=== PATIENT | male | born 1935 | race Caucasian/White ===

== ENCOUNTER 2019-07-11 12:38 | Observation (INO) | payer MEDICARE, OTHER ==
[~2019-07-11] VITALS: Ht 188 cm; Wt 101.6 kg
[~2019-07-11 12:38] MED LIST: INDERAL LA120 M1; Z.0.CRESTOR10 MG PO; Z.0.LEVOTHYROXINE100
--- OUTSIDE RECORDS SUMMARY | 2019-07-11 12:41 | XMS REPORT | Clinical Summary ---
Author Author [facility] Organization [facility] Address Unknown Phone Unavailable Care Team Providers Care Instrument Panel Assembler Name Role Phone Lesley Blanc PCP Allergies No Known Allergies Medications End Date Status Medication Sig Dispensed Refills Start Date Active liothyronine (CYTOMEL) 5 Take 5 mcg by 0 MCG tablet mouth 2 (two) times daily . Active alfuzosin (UROXATRAL) 10 Take 10 mg by 0 mg 24 hr tablet mouth daily. Active finasteride (PROSCAR) 5 Take 5 mg by 0 mg tablet mouth daily. Active rosuvastatin (CRESTOR) 10 Take 10 mg by 0 MG tablet mouth daily. Active fluticasone (FLONASE) 50 1 spray by 0 mcg/actuation nasal spray Nasal route daily. Active multivitamin per tablet Take 1 tablet 0 by mouth daily. Active aspirin 81 MG EC tablet Take 81 mg by 0 mouth daily. Active losartan (COZAAR) 50 MG Take 50 mg by 0 tablet mouth daily. Active FUROSEMIDE ORAL Take 20 mg by 0 mouth daily Strength of medication unknown per patient. . Active levothyroxine (SYNTHROID, Take 175 mcg 0 LEVOTHROID) 175 MCG by mouth tablet Every morning on an empty stomach. Active ferrous sulfate (IRON) Take 325 mg 0 325 (65 FE) MG tablet by mouth daily with breakfast. Active glucosamine sulfate Take by mouth 0 (GLUCOSAMINE ORAL) daily. Active calcium carbonate/vitamin Take by mouth 0 D3 (CALCIUM+D ORAL) daily. Active metoprolol (TOPROL-XL) 25 Take 25 mg by 0 MG 24 hr tablet mouth daily. Active omega-3 fatty acids-fish Take 2 g by 0 oil 340-1,000 mg Cap per mouth 2 (two) capsule times daily. Active pantoprazole (PROTONIX) Take one 0 40 MG tablet tablet on 9 empty stomach before breakfast in the morning. Active famotidine (PEPCID) 40 MG Take 1 tablet 30 tablet 3 tablet (40 mg total) 9 by mouth nightly No more refills through my office. 12/17/2018 Discontinued PANTOPRAZOLE SODIUM Take 40 mg by 0 (PANTOPRAZOLE ORAL) mouth daily . 12/16/2018 Discontinued propranolol (INDERAL) 20 Take 1 tablet 120 tablet 3 MG tablet (20 mg total) 8 by mouth every 6 (six) hours. Active Problems Problem Noted Date Gastroesophageal reflux disease without esophagitis 12/17/2018 Bilateral carotid artery disease 06/21/2018 HTN (hypertension) 06/21/2018 HLD (hyperlipidemia) 06/21/2018 Premature atrial complexes 05/31/2018 Bradycardia 12/30/2017 Bigeminy 12/30/2017 Acute midline thoracic back pain 12/28/2017 Chest pain 03/02/2017 CHF (congestive heart failure) 04/16/2016 Coronary artery disease 04/16/2016 Encounters Care Team Description Date Type Specialty Anthony Bates Jr., MD Giveon, Ron, MD Other chest pain (Primary Dx); Essential hypertension; Hyperlipidemia, unspecified hyperlipidemia type 12/16/2018 Emergency Cardiology - 12/17/2018 12/16/2018 Orders Only General Internal Medicine 12/16/2018 Travel after 07/10/2018 Social History Date Tobacco Use Types Packs/Day Years Used Former Smoker Smokeless Tobacco: Never Used Alcohol Use Drinks/Week oz/Week Comments Yes 7 Glasses of 4.2 1 glass of wine daily wine Sex Assigned at Date Recorded Not on file Industry Job Start Date Occupation Not on file Not on file Not on file Travel End Travel History Travel Start No recent travel history available. Last Filed Vital Signs Time Taken Vital Sign Reading 12/17/2018 4:08 PM [employer] Blood Pressure 138/66 12/17/2018 4:08 PM [employer] Pulse 66 12/17/2018 4:08 PM [employer] Temperature 36.3 C (97.4 F) 12/17/2018 4:08 PM [employer] Respiratory Rate 18 12/17/2018 4:08 PM [employer] Oxygen Saturation 98% - Inhaled Oxygen - Concentration 12/17/2018 7:00 AM [employer] Weight 101.2 kg (223 lb) 12/16/2018 5:00 PM [employer] Height 188 cm (6' 2") 12/17/2018 7:00 AM [employer] Body Mass Index 28.63 Plan of Treatment Not on file Implants Device Identifier Shelf Expiration Date Model / Serial / Lot Implanted Type Area Manufactur er 05/08/2020 [id number] / / [id number] Cardiovasc N/A: Groin CARDINAL Implanted: Qty: 1 on 06/23/2018 by [facility] Dell Macario MD KELLY Procedures Comments Procedure Name Priority Date/Time Associated Diagnosis RHYTHM STRIP - SCAN 12/30/2018 6:30 AM [employer] REPORT OF PROCEDURE - 12/30/2018 ENDOSCOPY SCAN 6:30 AM [employer] TREADMILL Routine 12/17/2018 TOLERANCE(NON-NUCLEAR 2:52 PM [employer] TREADMILL) NM CARDIAC PET PERFUSION ALONSO 12/17/2018 REST AND/OR STRESS 2:49 PM [employer] TROPONIN I Routine 12/16/2018 6:10 PM [employer] XR CHEST 1 VIEW STAT 12/16/2018 PORTABLE/BEDSIDE 11:38 AM [employer] CBC W/PLT COUNT & AUTO STAT 12/16/2018 DIFFERENTIAL 11:14 AM [employer] CBC W/PLT COUNT & AUTO STAT 12/16/2018 DIFFERENTIAL 11:14 AM [employer] TROPONIN I STAT 12/16/2018 11:14 AM [employer] B-TYPE NATRIURETIC FACTOR STAT 12/16/2018 (BNP) 11:14 AM [employer] MAGNESIUM STAT 12/16/2018 11:14 AM [employer] BASIC METABOLIC PANEL (7) STAT 12/16/2018 11:14 AM [employer] ECG 12-LEAD Routine 12/16/2018 10:55 AM [employer] Procedure Note - Interface, External Ris In - 12/16/2018 7:15 PM [employer] Ventricula r Rate 68 BPM Atrial Rate 68 BPM P-R Interval 270 ms QRS Duration 146 ms Q-T Interval 434 ms QTC Calculatio n(Bazett) 461 ms P [place] 59 degrees R [place] -6 degrees T [place] 41 degrees Poor data quality, interpreta tion may be adversely affected Wide QRS rhythm Right bundle branch block Abnormal ECG When compared with ECG of 8 00:57, Wide QRS rhythm has replaced Sinus rhythm ECG 12-LEAD STAT 12/16/2018 10:55 AM [employer] VASCULAR DIAGRAM -SCAN 09/06/2018 11:13 AM CDT after 07/10/2018 Results * RHYTHM STRIP - SCAN (12/30/2018 6:30 AM [employer]) Narrative Performed At * EKG-SCANNED (12/30/2018 6:30 AM [employer]) Narrative Performed At * Treadmill tolerance(Non-Nuclear Treadmill) (12/17/2018 2:52 PM [employer]) Specimen Narrative Performed At Protocol Name Regadenoson GE MUSE Time In Exercise Phase 00:01:00 Max. Systolic BP 131 mmHg Max Diastolic BP 34 mmHg Max Heart Rate 106 BPM Max Predicted Heart Rate 135 BPM Reason For Termination Predetermined end point Reason for Test Chest Pain Known Coronary Artery Disease Target HR Formula (220 - Age)*100% Arrhythmias ventricular premature beats Resting ECG Normal sinus rhythm right bundle branch block 1st Degree AV Block ST Changes No Significant Changes Overall Impression Indeterminate due to baseline ECG abnormality Chest Pain none HR Response To Exercise BP Response To Exercise lasix,losartan,metoprolol,crestor Confirmed by fellow Gautam Adame ([id number]) on 12/17/2018 3:25:47 PM Confirmed by Gautam Fitch ([id number]) on 12/20/2018 6:59:46 PM Procedure Note Interface, External Ris In - 12/20/2018 7:00 PM [employer] Protocol Name Regadenoson Time In Exercise Phase 00:01:00 Max. Systolic BP 131 mmHg Max Diastolic BP 34 mmHg Max Heart Rate 106 BPM Max Predicted Heart Rate 135 BPM Reason For Termination Predetermined end point Reason for Test Chest Pain Known Coronary Artery Disease Target HR Formula (220 - Age)*100% Arrhythmias ventricular premature beats Resting ECG Normal sinus rhythm right bundle branch block 1st Degree AV Block ST Changes No Significant Changes Overall Impression Indeterminate due to baseline ECG abnormality Chest Pain none HR Response To Exercise BP Response To Exercise lasix,losartan,metoprolol,crestor Confirmed by fellow Gautam Adame ([id number]) on 12/17/2018 3:25:47 PM Confirmed by Gautam Fitch ([id number]) on 12/20/2018 6:59:46 PM Performing Organization Address City/State/Zipcode Phone Number [employer] MUSE * NM myocardial perfusion PET (rest and stress) (12/17/2018 2:49 PM [employer]) Specimen Narrative Performed At FINAL REPORT [employer] PROCEDURE: Rest/Stress MYOCARDIAL PERFUSION PET with regadenoson\\XA9\\ CPT CODE: 02824 INDICATION: Evaluate acute chest pain/discomfort, coronary artery disease HISTORY: Cardiac risk factors: Hypertension, dyslipidemia. Other cardiovascular history: Reported CAD, congestive heart failure. Recent cardiac symptoms: Chest pain. PROTOCOL: Limited low-dose CT imaging was performed for attenuation correction. 40.0 mCi of Rb-82 chloride was injected iv at rest, and gated PET (positron emission tomography) images were obtained. Subsequently, 40.0 mCi of Rb-82 chloride was injected iv at expected peak pharmacologic effect, and gated PET images were obtained. PRELIMINARY STRESS TEST DATA FROM NONINVASIVE CARDIOLOGY: Pharmacologic stress was by 10-second iv infusion of 0.4 mg of regadenoson. Radiotracer was injected 30 seconds after start of stress. Heart rate was 61 beats/min at rest and 106 beats/min (78% of MPHR) at tracer injection. BP was 146/55 mmHg at rest and 131/34 mmHg at tracer injection. Stress was stopped for predetermined endpoint. The patient experienced no symptoms; treatment was not required. Preliminary ECG evaluation revealed sinus rhythm with first degree AV block and right bundle branch block at rest and no ischemic changes with stress. (Final ECG interpretation and other stress and monitoring data are reported separately by Cardiology.) IMAGING FINDINGS: Study quality is good. Images obtained after rest and stress injections show normal LV activity. LV and RV volumes appear normal. Gated images obtained at rest and with stress show normal LV wall motion and thickening. LVEF at rest is >65%. LVEF at stress is >65%. IMPRESSION: 1. Normal study.2. Appropriate pharmacologic stress.3. Normal myocardial perfusion.4. Normal resting LV function. No deterioration of function is noted with pharmacologic stress.5. Normal extracardiac tracer distribution.6. No previous [facility] study for comparison. Signed: Freya Brown MD Report Verified Date/Time:12/17/2018 15:55:23 Reading Location: [address] Reading Room Procedure Note Interface, External Ris In - 12/17/2018 3:57 PM [employer] FINAL REPORT PROCEDURE: Rest/Stress MYOCARDIAL PERFUSION PET with regadenoson\\XA9\\ CPT CODE: 56951 INDICATION: Evaluate acute chest pain/discomfort, coronary artery disease HISTORY: Cardiac risk factors: Hypertension, dyslipidemia. Other cardiovascular history: Reported CAD, congestive heart failure. Recent cardiac symptoms: Chest pain. PROTOCOL: Limited low-dose CT imaging was performed for attenuation correction. 40.0 mCi of Rb-82 chloride was injected iv at rest, and gated PET (positron emission tomography) images were obtained. Subsequently, 40.0 mCi of Rb-82 chloride was injected iv at expected peak pharmacologic effect, and gated PET images were obtained. PRELIMINARY STRESS TEST DATA FROM NONINVASIVE CARDIOLOGY: Pharmacologic stress was by 10-second iv infusion of 0.4 mg of regadenoson. Radiotracer was injected 30 seconds after start of stress. Heart rate was 61 beats/min at rest and 106 beats/min (78% of MPHR) at tracer injection. BP was 146/55 mmHg at rest and 131/34 mmHg at tracer injection. Stress was stopped for predetermined endpoint. The patient experienced no symptoms; treatment was not required. Preliminary ECG evaluation revealed sinus rhythm with first degree AV block and right bundle branch block at rest and no ischemic changes with stress. (Final ECG interpretation and other stress and monitoring data are reported separately by Cardiology.) IMAGING FINDINGS: Study quality is good. Images obtained after rest and stress injections show normal LV activity. LV and RV volumes appear normal. Gated images obtained at rest and with stress show normal LV wall motion and thickening. LVEF at rest is >65%. LVEF at stress is >65%. IMPRESSION: 1. Normal study. 2. Appropriate pharmacologic stress. 3. Normal myocardial perfusion. 4. Normal resting LV function. No deterioration of function is noted with pharmacologic stress. 5. Normal extracardiac tracer distribution. 6. No previous [facility] study for comparison. Signed: Freya Brown MD Report Verified Date/Time: 12/17/2018 15:55:23 Reading Location: [address] Reading Room Performing Organization Address City/State/Zipcode Phone Number GE RIS * Troponin I (12/16/2018 6:10 PM [employer]) Only the most recent of 2 results within the time period is included. Troponin I <0.01 0.00 - 0.03 ng/mL [facility] Specimen Blood Narrative Performed At Troponin I (TnI) levels must be interpreted in the context of the presenting [facility] symptoms and the clinical findings. Elevated TnI levels indicate myocardial [facility] damage, but are not specific for ischemic heart disease. Elevated TnI levels are seen in patients with other cardiac conditions (including myocarditis and congestive heart failure), and slight TnI elevations occur in patients with other conditions, including sepsis, renal failure, acidosis, acute neurological disease, and persistent tachyarrhythmia. Performing Organization Address City/[facility] Cent[facility] Phone Number [facility] [address] [place] [address] MEDICAL CENTER * XR chest 1 view portable/bedside (12/16/2018 11:38 AM [employer]) Specimen Narrative Performed At FINAL REPORT GE Hyper9 Clinical History: chest pain Comparison Study: May 31, 2018 Findings:The heart and lungs are within normal limits.The pleural spaces are clear.No significant bony or soft tissue abnormalities are seen. Impression: No active cardiopulmonary disease. Signed: Tomas Painting MD Report Verified Date/Time:12/16/2018 12:27:00 Reading Location: [facility] Radiology Reading Room Procedure Note Interface, External Ris In - 12/16/2018 12:29 PM [employer] FINAL REPORT Clinical History: chest pain Comparison Study: May 31, 2018 Findings: The heart and lungs are within normal limits. The pleural spaces are clear. No significant bony or soft tissue abnormalities are seen. Impression: No active cardiopulmonary disease. Signed: Tomas Painting MD Report Verified Date/Time: 12/16/2018 12:27:00 Reading Location: [facility] Radiology Reading Room Performing Organization Address City/[facility] Phone Number GE Hyper9 * CBC with platelet count + automated diff (12/16/2018 11:14 AM [employer]) WBC 4.9 3.5 - 10.5 K/L [facility] RBC 3.34 (L) 4.63 - 6.08 M/L [facility] Hemoglobin 10.5 (L) 13.7 - 17.5 GM/DL [facility] Hematocrit 31.9 (L) 40.1 - 51.0 % [facility] MCV 95.5 (H) 79.0 - 92.2 fL [facility] MCH 31.4 25.7 - 32.2 pg [facility] MCHC 32.9 32.3 - 36.5 GM/DL [facility] RDW 12.5 11.6 - 14.4 % [facility] Platelets 241 150 - 450 K/CU MM [facility] MPV 10.5 9.4 - 12.4 fL [facility] nRBC 0 0 - 0 /100 WBC [facility] % Neutros 60 % [facility] % Lymphs 19 % [facility] % Monos 17 % [facility] % Eos 3 % [facility] % Baso 1 % [facility] # Neutros 2.94 1.78 - 5.38 K/L [facility] # Lymphs 0.92 (L) 1.32 - 3.57 K/L [facility] # Monos 0.82 0.30 - 0.82 K/L [facility] # Eos 0.14 0.04 - 0.54 K/L [facility] # Baso 0.04 0.01 - 0.08 K/L [facility] Immature 0 0 - 1 % [facility] Granulocytes-Relative [facility] Specimen Blood Performing Organization Address City/[facility]/Zipcode Phone Number [address] [address] [phone] * B-type Natriuretic Factor (BNP) (12/16/2018 11:14 AM [employer]) BNP 300 (H) 0 - 100 pg/mL [facility] Specimen Blood Performing Organization Address City/[facility]/Zipcode Phone Number [address] [address] [phone] [place] [address] * Magnesium (12/16/2018 11:14 AM [employer]) Magnesium 1.9 1.6 - 2.6 mg/dL [facility] Specimen Blood Performing Organization Address [facility] Cent[facility] Phone Number [place] [phone] * Basic Metabolic Panel (12/16/2018 11:14 AM [employer]) Sodium 137 136 - 145 meq/L [facility] Potassium 4.2 3.5 - 5.1 meq/L [facility] Chloride 103 98 - 107 meq/L [facility] CO2 25 22 - 29 meq/L [facility] BUN 13 7 - 21 mg/dL [facility] Creatinine 0.86 0.57 - 1.25 mg/dL [facility] Glucose 109 (H) 70 - 105 mg/dL [facility] Calcium 9.2 8.4 - 10.2 mg/dL [facility] EGFR 85Comment: ESTIMATED GFR IS mL/min/1.[address] [facility] NOT ACCURATE CREATININE [facility] CLEARANCE IN PREDICTING GLOMERULAR FILTRATION RATE. ESTIMATED GFR IS NOT APPLICABLE FOR DIALYSIS PATIENTS. Specimen Blood Performing Organization Address City/[facility]/Zipcode Phone Number [facility] [address] [place] [address] MEDICAL CENTER * ECG 12 lead (12/16/2018 10:55 AM [employer]) Specimen Narrative Performed At Ventricular Rate 68 BPM GE MUSE Atrial Rate 68 BPM P-R Interval 270 ms QRS Duration 146 ms Q-T Interval 434 ms QTC Calculation(Bazett) 461 ms P [place] 59 degrees R [place] -6 degrees T [place] 41 degrees Sinus rhythm with first degree AV block Right bundle branch block Abnormal ECG When compared with ECG of 31-MAY-2018 00:57, ventricular bigeminy is no longer present. Confirmed by Donald BRADSHAW MICHAEL ([id number]) on 12/17/2018 7:26:07 AM Procedure Note Interface, External Ris In - 12/17/2018 9:04 AM [employer] Ventricular Rate 68 BPM Atrial Rate 68 BPM P-R Interval 270 ms QRS Duration 146 ms Q-T Interval 434 ms QTC Calculation(Bazett) 461 ms P [place] 59 degrees R [place] -6 degrees T [place] 41 degrees Sinus rhythm with first degree AV block Right bundle branch block Abnormal ECG When compared with ECG of 31-MAY-2018 00:57, ventricular bigeminy is no longer present. Confirmed by Donald BRADSHAW MICHAEL ([id number]) on 12/17/2018 7:26:07 AM Performing Organization Address City/State/Zipcode Phone Number GE [employer]ET * VASCULAR DIAGRAM -SCAN (09/06/2018 11:13 AM CDT) Narrative Performed At after 07/10/2018 Insurance Payer Benefit Subscriber ID Type Phone Address Plan / Group MEDICARE MEDICARE A xxxxxxxxxxx Medicare B AETNA - MGD CARE AETNA xxxxxxxxxx Comm INDEMNITY NON CONTR Advance Directives For more information, please contact: [address] [phone] Date Inactivated Comments Code Status Date Activated 06/23/2018 9:50 PM Full Code 06/23/2018 6:39 AM This code status was determined by: Patient 12/31/2017 5:20 PM Full Code 12/28/2017 1:40 PM This code status was determined by: Patient 03/03/2017 8:34 PM Full Code 03/02/2017 8:46 AM This code status was determined by: Patient 04/17/2016 1:01 AM Full Code 04/16/2016 7:04 AM This code status was determined by: Patient
--- OUTSIDE RECORDS SUMMARY | 2019-07-11 12:41 | XMS REPORT | Clinical Summary ---
Author Author [facility] Organization [facility] Address Unknown Phone Unavailable Care Team Providers Care Clinical Rehabilitation Coordinator Name Role Phone Lesley Blanc MD PCP Allergies No Known Allergies Medications End Date Status Medication Sig Dispensed Refills Start Date Active finasteride (PROSCAR) 5 0 02/09/201 mg tablet 8 Active alfuzosin (UROXATRAL) 10 Take 10 mg by 0 mg 24 hr tablet mouth. Active furosemide (LASIX) 20 mg 0 tablet 8 Active levothyroxine (SYNTHROID, Take 175 mcg 0 LEVOXYL) 175 mcg tablet by mouth. Active losartan (COZAAR) 50 MG Take 50 mg by 0 tablet mouth. Active liothyronine (CYTOMEL) 5 0 02/09/ MCG tablet 8 Active multivitamin (THERAGRAN) Take 1 tablet 0 tablet by mouth. Active pantoprazole (PROTONIX) 0 40 MG EC tablet 8 Active propranolol LA (INDERAL TK ONE C PO 3 LA) 60 MG 24 hr capsule QAM 8 Active rosuvastatin (CRESTOR) 10 Take 10 mg by 0 MG tablet mouth. Active iron,carb/vit C/vit Take by 0 B12/folic (IRON 100 PLUS mouth. ORAL) Active aspirin (ECOTRIN) 81 MG Take 81 mg by 0 enteric coated tablet mouth. Active Ca/D3/mag Take 600 mg 0 ox/zinc/paste up copy camera operator/tamika/bor by mouth (CALCIUM 600-D3 PLUS daily. ORAL) Active fluticasone (FLONASE) 50 2 sprays by 0 mcg/actuation nasal spray Each Nare route daily. Active ytudbwoy-elsqhcsjgfn-izcl Take by 0 cb25 116-100 mg capsule mouth. 09/28/2018 Discontinued quiNIDine gluconate 324 Take 3,000 mg 0 mg CR tablet by mouth daily. 09/28/2018 Discontinued sodium,potassium,mag Please use as 354 mL 0 06/21/201 sulfates (SUPREP BOWEL directed 8 PREP KIT) 17.5-3.13-1.6 gram recon soln 09/28/2018 Discontinued cholestyramine (QUESTRAN) TK 1 PACKET 2 4 gram packet PO 20 MINUTES 8 BEFORE LUNCH AND DINNER Active Problems Problem Noted Date Rotator cuff insufficiency of right shoulder 09/28/2018 Collagenous colitis 05/27/2018 Tubular adenoma of colon 05/27/2018 Diverticulosis large intestine w/o perforation or abscess w/o bleeding 05/27/2018 Internal hemorrhoids 05/27/2018 Heme positive stool 04/29/2018 Absolute anemia 04/29/2018 Gastroesophageal reflux disease 04/10/2018 Diarrhea 04/08/2018 Bloating 04/08/2018 Dyspepsia 04/08/2018 Encounters Care Team Description Date Type Specialty Zen Kaur MD Chronic right shoulder pain (Primary Dx); Rotator cuff insufficiency of right shoulder 09/28/2018 Office Visit Orthopedic Surgery after 07/10/2018 Family History Medical History Relation Name Comments Cancer Brother James Relation Name Status Comments Brother James Social History Date Tobacco Use Types Packs/Day Years Used Never Smoker Smokeless Tobacco: Never Used Drinks/Week oz/Week Comments Alcohol Use 1 Glasses of wine 1.0 Yes Sex Assigned at Date Recorded Not on file Industry Job Start Date Occupation Not on file Not on file Not on file Travel End Travel History Travel Start No recent travel history available. Last Filed Vital Signs Reading Time Taken Comments Vital Sign - - Blood Pressure - - Pulse - - Temperature - - Respiratory Rate - - Oxygen Saturation - - Inhaled Oxygen Concentration 102 kg (225 lb) 09/28/2018 9:12 AM [employer] Weight 188 cm (6' 2") 09/28/2018 9:12 AM [employer] Height 28.89 09/28/2018 9:12 AM [employer] Body Mass Index Plan of Treatment Health Maintenance Due Date Last Done Comments SHINGLES VACCINES (#1) 1983 65+ PNEUMOCOCCAL VACCINE 1998 (1 of 2 - PCV13) INFLUENZA VACCINE 06/09/2019 Procedures Comments Procedure Name Priority Date/Time Associated Diagnosis XR SHOULDER 2+ VW RIGHT Routine 09/28/2018 Chronic right shoulder 9:29 AM [employer] OFF[employer] pain after 07/10/2018 Results * XR Shoulder 2+ Vw Right (09/28/2018 9:29 AM [employer] OFFIC[employer]) Specimen Narrative Performed At [facility] Three-view x-ray of the right shoulder: There is some generalized osteopenia.There is a loss of the subacromial space with superior migration of the humeral head on the glenoid.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 Performing Organization Address City/State/Zipcode Phone Number [facility] [address] [place] [address] after 07/10/2018 Insurance Type Payer Benefit Subscriber ID Effective Phone Address Plan / Dates Group Indemnity AETNA AETNA xxxxxxxxxx [id number] [facility] resent RE INDEMNITY Medicare MEDICARE MEDICARE xxxxxxxxxx [id number] [place], PART A AND resent [place] Advance Directives For more information, please contact: [phone] 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
--- OUTSIDE RECORDS SUMMARY | 2019-07-11 12:42 | XMS REPORT ---
Author Author [facility] Address Unknown Phone Unavailable Care Team Providers Care Regulatory And Compliance Technician Name Role Phone ADRIENNE ABBE DOVER Unavailable Unavailable SAIRA HUITRON Unavailable Unavailable LILYKITTY Unavailable Unavailable JAUNG, ISRRAEL BARRIENTOS Unavailable Unavailable SOLANGE, DELMY CUEVA Unavailable Unavailable Problems This patient has no known problems. Allergies, Adverse Reactions, Alerts This patient has no known allergies or adverse reactions. Medications This patient has no known medications. Results Test Description Test Time Test Comments Text Results Atomic Results Result Comments PET, CARDIAC PERFUSION MULTIPLE STUDIES, REST AND STRESS 2018-12-17 15:55:00 Reason for exam:->cad, acute chest pain FINAL REPORT PROCEDURE: Rest/Stress MYOCARDIAL PERFUSION PET with regadenoson\\XA9\\ CPT CODE: 85218 INDICATION: Evaluate acute chest pain/discomfort, coronary artery di sease HISTORY: Cardiac risk factors: Hypertension, dyslipidemia. Other [...] HOSPITAL study for comparison. Signed: Freya Brown MDReport Verified Date/Time: 12/17/2018 15:55:23 Reading Location: [address] Reading Room ONIN I 2018-12-16 18:53:00 TROPONIN I (KANDYAKER) (test irwy=632) < ng/mL 0.00-0.03 Troponin I (TnI) levels must be interpreted in the context of the presenting sym ptoms and the clinical findings. Elevated TnI levels indicate myocardial damage, but are not specific for ischemic heart disease. Elevated TnI levels are seen in patients with other cardiac conditions (including myocarditis and congestive h eart failure), and slight TnI elevations occur in patients with other conditions , including sepsis, renal failure, acidosis, acute neurological disease, and per sistent tachyarrhythmia.RAD, CHEST, 1 VIEW, NON [id number] 12:27:00Reason for exam:->chest painFINAL REPORT Clinical History: chest pain Comparison Study: May 31, 2018 Findings: The heart and lungs are within normal limits. The pleural spaces are clear. No significant bony or soft tissue abnormalities are seen. Impression: No active cardiopulmonary disease. Signed: Tomas Painting MDRshonaort Verified Date/Time: 12/16/2018 12:27:00 Reading Location: [facility] Radiology Reading Room B-TYPE NATRIURETIC FACTOR (BNP)2018-12-16 11:56:00* Test Item Value Reference Range Comments B-TYPE NATRIURETIC PEPTIDE (BEAKER) (test yojl=483) 300 pg/mL 0-100 TROPONIN [id number] 11:55:00* Test Item Value Reference Range Comments TROPONIN I (BEAKER) (test hvdi=498) < ng/mL 0.00-0.03 Troponin I (TnI) levels must be interpreted in the context of the presenting sym ptoms and the clinical findings. Elevated TnI levels indicate myocardial damage, but are not specific for ischemic heart disease. Elevated TnI levels are seen in patients with other cardiac conditions (including myocarditis and congestive h eart failure), and slight TnI elevations occur in patients with other conditions , including sepsis, renal failure, acidosis, acute neurological disease, and per sistent tachyarrhythmia.[id number] 11:48:00* Test Item Value Reference Range Comments MAGNESIUM (BEAKER) (test pgxb=983) 1.9 mg/dL 1.6-2.6 BASIC METABOLIC [id number] 11:48:00* Test Item Value Reference Range Comments SODIUM (BEAKER) (test prym=036) 137 meq/L 136-145 POTASSIUM (BEAKER) (test zozn=739) 4.2 meq/L 3.5-5.1 CHLORIDE (BEAKER) (test oyxa=075) 103 meq/L 98-107 CO2 (BEAKER) (test ijoc=629) 25 meq/L 22-29 BLOOD UREA NITROGEN (BEAKER) (test kywc=976) 13 mg/dL 7-21 CREATININE (BEAKER) (test aajx=933) 0.86 mg/dL 0.57-1.25 GLUCOSE RANDOM (BEAKER) (test tybu=506) 109 mg/dL 70-105 CALCIUM (BEAKER) (test iypk=673) 9.2 mg/dL 8.4-10.2 EGFR (BEAKER) (test iprb=3835) 85 mL/min/1.73 sq m ESTIMATED GFR IS NOT ACCURATE CREATININE CLEARANCE IN PREDICTING GLOMERULAR FILTRATION RATE. ESTIMATED GFR IS NOT APPLICABLE FOR DIALYSIS PATIENTS. CBC W/PLT COUNT & AUTO [id number] 11:32:00* Test Item Value Reference Range Comments WHITE BLOOD CELL COUNT (BEAKER) (test hirp=512) 4.9 K/ L 3.5-10.5 RED BLOOD CELL COUNT (BEAKER) (test cctg=244) 3.34 M/ L 4.63-6.08 HEMOGLOBIN (BEAKER) (test ivjc=129) 10.5 GM/DL 13.7-17.5 HEMATOCRIT (BEAKER) (test rlvr=357) 31.9 % 40.1-51.0 MEAN CORPUSCULAR VOLUME (BEAKER) (test cigy=939) 95.5 fL 79.0-92.2 MEAN CORPUSCULAR HEMOGLOBIN (BEAKER) (test begm=433) 31.4 pg 25.7-32.2 MEAN CORPUSCULAR HEMOGLOBIN CONC (BEAKER) (test qona=038) 32.9 GM/DL 32.3-36.5 RED CELL DISTRIBUTION WIDTH (BEAKER) (test snjr=350) 12.5 % 11.6-14.4 PLATELET COUNT (BEAKER) (test liss=255) 241 K/CU MM 150-450 MEAN PLATELET VOLUME (BEAKER) (test qovd=927) 10.5 fL 9.4-12.4 NUCLEATED RED BLOOD CELLS (BEAKER) (test cojc=874) 0 /100 WBC 0-0 NEUTROPHILS RELATIVE PERCENT (BEAKER) (test nxqj=350) 60 % LYMPHOCYTES RELATIVE PERCENT (BEAKER) (test cckn=613) 19 % MONOCYTES RELATIVE PERCENT (BEAKER) (test qdfx=333) 17 % EOSINOPHILS RELATIVE PERCENT (BEAKER) (test vqtf=500) 3 % BASOPHILS RELATIVE PERCENT (BEAKER) (test qrqh=105) 1 % NEUTROPHILS ABSOLUTE COUNT (BEAKER) (test tgfz=201) 2.94 K/ L 1.78-5.38 LYMPHOCYTES ABSOLUTE COUNT (BEAKER) (test lqqd=662) 0.92 K/ L 1.32-3.57 MONOCYTES ABSOLUTE COUNT (BEAKER) (test ariu=961) 0.82 K/ L 0.30-0.82 EOSINOPHILS ABSOLUTE COUNT (BEAKER) (test eude=763) 0.14 K/ L 0.04-0.54 BASOPHILS ABSOLUTE COUNT (BEAKER) (test rlfy=195) 0.04 K/ L 0.01-0.08 IMMATURE GRANULOCYTES-RELATIVE PERCENT (BEAKER) (test fevg=5096) 0 % 0-1 [id number] 13:42:00* Test Item Value Reference Range Comments ACTIVATED CLOTTING TIME (BEAKER) (test sjzz=198) 208 sec TESTED AT [facility] [address] [facility] [address] BASIC METABOLIC [id number] 07:50:00* Test Item Value Reference Range Comments SODIUM (BEAKER) (test uyzq=857) 135 meq/L 136-145 POTASSIUM (BEAKER) (test pwdl=165) 4.5 meq/L 3.5-5.1 CHLORIDE (BEAKER) (test vcpa=978) 103 meq/L 98-107 CO2 (BEAKER) (test ezni=579) 27 meq/L 22-29 BLOOD UREA NITROGEN (BEAKER) (test ujri=348) 16 mg/dL 7-21 CREATININE (BEAKER) (test lqah=836) 0.99 mg/dL 0.57-1.25 GLUCOSE RANDOM (BEAKER) (test saze=638) 122 mg/dL 70-105 CALCIUM (BEAKER) (test ctwu=906) 9.2 mg/dL 8.4-10.2 EGFR (BEAKER) (test cjnd=7766) 72 mL/min/1.73 sq m ESTIMATED GFR IS NOT ACCURATE CREATININE CLEARANCE IN PREDICTING GLOMERULAR FILTRATION RATE. ESTIMATED GFR IS NOT APPLICABLE FOR DIALYSIS PATIENTS. CBC (HEMOGRAM ONLY)2018-06-23 07:33:00* Test Item Value Reference Range Comments WHITE BLOOD CELL COUNT (BEAKER) (test bdvr=729) 4.9 K/ L 3.5-10.5 RED BLOOD CELL COUNT (BEAKER) (test cavb=516) 3.34 M/ L 4.63-6.08 HEMOGLOBIN (BEAKER) (test gbys=342) 10.7 GM/DL 13.7-17.5 HEMATOCRIT (BEAKER) (test uusy=158) 31.9 % 40.1-51.0 MEAN CORPUSCULAR VOLUME (BEAKER) (test qjin=608) 95.5 fL 79.0-92.2 MEAN CORPUSCULAR HEMOGLOBIN (BEAKER) (test gghk=640) 32.0 pg 25.7-32.2 MEAN CORPUSCULAR HEMOGLOBIN CONC (BEAKER) (test urrq=876) 33.5 GM/DL 32.3-36.5 RED CELL DISTRIBUTION WIDTH (BEAKER) (test mcka=596) 13.1 % 11.6-14.4 PLATELET COUNT (BEAKER) (test hlex=332) 258 K/CU MM 150-450 MEAN PLATELET VOLUME (BEAKER) (test fghh=103) 10.3 fL 9.4-12.4 NUCLEATED RED BLOOD CELLS (BEAKER) (test witi=344) 0 /100 WBC 0-0 B-TYPE NATRIURETIC FACTOR (BNP)2018-05-31 02:00:00* Test Item Value Reference Range Comments B-TYPE NATRIURETIC PEPTIDE (BEAKER) (test dhgy=298) 257 pg/mL 0-100 CREATINE KINASE (CK), TOTAL AND [id number] 01:58:00* Test Item Value Reference Range Comments CREATINE KINASE TOTAL (BEAKER) (test akvb=605) 74 U/L 29-200 CREATINE KINASE-MB (BEAKER) (test kwlz=173) 1.8 ng/mL 0.0-6.6 CREATINE KINASE-MB INDEX (BEAKER) (test xfqy=554) 2.4 % CK-MB Reference Range:<6.7 Normal6.7-10.0 Borderline>10.0 Abnormal TROPONIN [id number] 01:58:00* Test Item Value Reference Range Comments TROPONIN I (BEAKER) (test defj=436) 0.01 ng/mL 0.00-0.03 Troponin I (TnI) levels must be interpreted in the context of the presenting sym ptoms and the clinical findings. Elevated TnI levels indicate myocardial damage, but are not specific for ischemic heart disease. Elevated TnI levels are seen in patients with other cardiac conditions (including myocarditis and congestive h eart failure), and slight TnI elevations occur in patients with other conditions , including sepsis, renal failure, acidosis, acute neurological disease, and per sistent tachyarrhythmia.BASIC METABOLIC [id number] 01:49:00* Test Item Value Reference Range Comments SODIUM (BEAKER) (test hfuo=577) 135 meq/L 136-145 POTASSIUM (BEAKER) (test trea=407) 4.1 meq/L 3.5-5.1 CHLORIDE (BEAKER) (test athw=004) 101 meq/L 98-107 CO2 (BEAKER) (test ehba=676) 23 meq/L 22-29 BLOOD UREA NITROGEN (BEAKER) (test iecv=667) 15 mg/dL 7-21 CREATININE (BEAKER) (test cdgr=863) 0.89 mg/dL 0.57-1.25 GLUCOSE RANDOM (BEAKER) (test ctqx=538) 97 mg/dL 70-105 CALCIUM (BEAKER) (test qvtj=220) 9.2 mg/dL 8.4-10.2 EGFR (BEAKER) (test saks=8969) 81 mL/min/1.73 sq m ESTIMATED GFR IS NOT ACCURATE CREATININE CLEARANCE IN PREDICTING GLOMERULAR FILTRATION RATE. ESTIMATED GFR IS NOT APPLICABLE FOR DIALYSIS PATIENTS. RAD, CHEST, 1 VIEW, NON [id number] 01:40:00Reason for exam:->CHEST PAINShould this be performed at the bedside?->YesFINAL REPORT RAD, CHEST, 1 VIEW, NON DEPT INDICATION: CHEST PAIN COMPARISON: Chest x-ray 6 months ago TECHNIQUE: Portable frontal view of the chest. IMPRESSION: No pneumothorax.Stable cardiomegaly and enlargement of the pulmonary arteries.No overt consolidative or congestive change.No acute osseous abnormality. Signed: Bandar Zimmer MDReport Verified Date/Time: 05/31/2018 01:40:55 Reading Location: [address] Reading Room W/PLT COUNT & AUTO DIFFERENTIAL 2018-05-31 01:35:00* Test Item Value Reference Range Comments WHITE BLOOD CELL COUNT (BEAKER) (test jtjf=072) 6.2 K/ L 3.5-10.5 RED BLOOD CELL COUNT (BEAKER) (test khwn=277) 3.33 M/ L 4.63-6.08 HEMOGLOBIN (BEAKER) (test ilav=200) 10.4 GM/DL 13.7-17.5 HEMATOCRIT (BEAKER) (test jvov=520) 32.1 % 40.1-51.0 MEAN CORPUSCULAR VOLUME (BEAKER) (test ljdp=239) 96.4 fL 79.0-92.2 MEAN CORPUSCULAR HEMOGLOBIN (BEAKER) (test lrqc=053) 31.2 pg 25.7-32.2 MEAN CORPUSCULAR HEMOGLOBIN CONC (BEAKER) (test wwzv=715) 32.4 GM/DL 32.3-36.5 RED CELL DISTRIBUTION WIDTH (BEAKER) (test zajg=134) 13.2 % 11.6-14.4 PLATELET COUNT (BEAKER) (test exna=208) 250 K/CU MM 150-450 MEAN PLATELET VOLUME (BEAKER) (test qwml=477) 10.4 fL 9.4-12.4 NUCLEATED RED BLOOD CELLS (BEAKER) (test pxgc=463) 0 /100 WBC 0-0 NEUTROPHILS RELATIVE PERCENT (BEAKER) (test tuaz=895) 47 % LYMPHOCYTES RELATIVE PERCENT (BEAKER) (test perc=614) 31 % MONOCYTES RELATIVE PERCENT (BEAKER) (test xydl=239) 15 % EOSINOPHILS RELATIVE PERCENT (BEAKER) (test ovvf=604) 7 % BASOPHILS RELATIVE PERCENT (BEAKER) (test dglk=056) 1 % NEUTROPHILS ABSOLUTE COUNT (BEAKER) (test zopf=456) 2.91 K/ L 1.78-5.38 LYMPHOCYTES ABSOLUTE COUNT (BEAKER) (test smce=317) 1.90 K/ L 1.32-3.57 MONOCYTES ABSOLUTE COUNT (BEAKER) (test lxlq=814) 0.90 K/ L 0.30-0.82 EOSINOPHILS ABSOLUTE COUNT (BEAKER) (test jgql=637) 0.41 K/ L 0.04-0.54 BASOPHILS ABSOLUTE COUNT (BEAKER) (test tjud=743) 0.04 K/ L 0.01-0.08 IMMATURE GRANULOCYTES-RELATIVE PERCENT (BEAKER) (test sois=2938) 0 % 0-1 BASIC METABOLIC [id number] 04:18:00* Test Item Value Reference Range Comments SODIUM (BEAKER) (test brvh=130) 137 meq/L 136-145 POTASSIUM (BEAKER) (test seaf=019) 4.3 meq/L 3.5-5.1 CHLORIDE (BEAKER) (test ibzb=822) 106 meq/L 98-107 CO2 (BEAKER) (test gcvu=782) 24 meq/L 22-29 BLOOD UREA NITROGEN (BEAKER) (test iskf=068) 23 mg/dL 7-21 CREATININE (BEAKER) (test ziio=104) 0.78 mg/dL 0.57-1.25 GLUCOSE RANDOM (BEAKER) (test lsrn=933) 116 mg/dL 70-105 CALCIUM (BEAKER) (test uivm=228) 8.6 mg/dL 8.4-10.2 EGFR (BEAKER) (test sbbk=2206) 95 mL/min/1.73 sq m ESTIMATED GFR IS NOT ACCURATE CREATININE CLEARANCE IN PREDICTING GLOMERULAR FILTRATION RATE. ESTIMATED GFR IS NOT APPLICABLE FOR DIALYSIS PATIENTS. CBC W/PLT COUNT & AUTO [id number] 04:07:00* Test Item Value Reference Range Comments WHITE BLOOD CELL COUNT (BEAKER) (test pqbr=745) 6.5 K/ L 3.5-10.5 RED BLOOD CELL COUNT (BEAKER) (test lgva=064) 3.32 M/ L 4.63-6.08 HEMOGLOBIN (BEAKER) (test ifym=685) 10.3 GM/DL 13.7-17.5 HEMATOCRIT (BEAKER) (test iiem=659) 31.8 % 40.1-51.0 MEAN CORPUSCULAR VOLUME (BEAKER) (test dxsl=227) 95.8 fL 79.0-92.2 MEAN CORPUSCULAR HEMOGLOBIN (BEAKER) (test ruij=196) 31.0 pg 25.7-32.2 MEAN CORPUSCULAR HEMOGLOBIN CONC (BEAKER) (test enbz=502) 32.4 GM/DL 32.3-36.5 RED CELL DISTRIBUTION WIDTH (BEAKER) (test uopf=616) 13.2 % 11.6-14.4 PLATELET COUNT (BEAKER) (test pbme=449) 244 K/CU MM 150-450 MEAN PLATELET VOLUME (BEAKER) (test wvfm=466) 10.8 fL 9.4-12.4 NUCLEATED RED BLOOD CELLS (BEAKER) (test oofh=275) 0 /100 WBC 0-0 NEUTROPHILS RELATIVE PERCENT (BEAKER) (test ivfq=599) 49 % LYMPHOCYTES RELATIVE PERCENT (BEAKER) (test lzeb=647) 24 % MONOCYTES RELATIVE PERCENT (BEAKER) (test jgon=357) 19 % EOSINOPHILS RELATIVE PERCENT (BEAKER) (test tgli=426) 7 % BASOPHILS RELATIVE PERCENT (BEAKER) (test qivd=706) 1 % NEUTROPHILS ABSOLUTE COUNT (BEAKER) (test eypm=289) 3.22 K/ L 1.78-5.38 LYMPHOCYTES ABSOLUTE COUNT (BEAKER) (test xuwi=630) 1.54 K/ L 1.32-3.57 MONOCYTES ABSOLUTE COUNT (BEAKER) (test ktop=215) 1.21 K/ L 0.30-0.82 EOSINOPHILS ABSOLUTE COUNT (BEAKER) (test jcmu=238) 0.47 K/ L 0.04-0.54 BASOPHILS ABSOLUTE COUNT (BEAKER) (test mfpi=331) 0.06 K/ L 0.01-0.08 IMMATURE GRANULOCYTES-RELATIVE PERCENT (BEAKER) (test ylol=8467) 0 % 0-1 VITAMIN B12 AND [id number] 12:55:00* Test Item Value Reference Range Comments VITAMIN B12 (BEAKER) (test yrsp=998) 888 pg/mL 213-816 FOLATE (BEAKER) (test uwod=798) 17.2 ng/mL >=7.0 RETICULOCYTE [id number] 12:33:00* Test Item Value Reference Range Comments RETICULOCYTE COUNT PCT (BEAKER) (test mrwy=134) 1.5 % 0.5-1.8 IRON, TIBC, % SAT. (WITHOUT FERRITIN)2017-12-30 12:21:00* Test Item Value Reference Range Comments IRON (BEAKER) (test pkop=717) 57 ug/dL 40-160 TOTAL IRON BINDING CAPACITY (BEAKER) (test sdoz=899) 204 ug/dL 250-450 IRON % SATURATION (2) (BEAKER) (test uvkw=9398) 28 % 20-55 CBC W/PLT COUNT & AUTO [id number] 07:03:00* Test Item Value Reference Range Comments WHITE BLOOD CELL COUNT (BEAKER) (test feoi=487) 6.1 K/ L 3.5-10.5 RED BLOOD CELL COUNT (BEAKER) (test kdgg=929) 3.42 M/ L 4.63-6.08 HEMOGLOBIN (BEAKER) (test geaf=993) 10.7 GM/DL 13.7-17.5 HEMATOCRIT (BEAKER) (test aktw=330) 33.1 % 40.1-51.0 MEAN CORPUSCULAR VOLUME (BEAKER) (test zgpz=401) 96.8 fL 79.0-92.2 MEAN CORPUSCULAR HEMOGLOBIN (BEAKER) (test tchp=274) 31.3 pg 25.7-32.2 MEAN CORPUSCULAR HEMOGLOBIN CONC (BEAKER) (test hicr=055) 32.3 GM/DL 32.3-36.5 RED CELL DISTRIBUTION WIDTH (BEAKER) (test pdpe=008) 13.1 % 11.6-14.4 PLATELET COUNT (BEAKER) (test brnp=774) 249 K/CU MM 150-450 MEAN PLATELET VOLUME (BEAKER) (test rmte=414) 10.9 fL 9.4-12.4 NUCLEATED RED BLOOD CELLS (BEAKER) (test ezdg=399) 0 /100 WBC 0-0 NEUTROPHILS RELATIVE PERCENT (BEAKER) (test yrkl=959) 51 % LYMPHOCYTES RELATIVE PERCENT (BEAKER) (test rkuw=650) 24 % MONOCYTES RELATIVE PERCENT (BEAKER) (test jfru=994) 17 % EOSINOPHILS RELATIVE PERCENT (BEAKER) (test icar=568) 8 % BASOPHILS RELATIVE PERCENT (BEAKER) (test jiyn=605) 1 % NEUTROPHILS ABSOLUTE COUNT (BEAKER) (test levb=429) 3.12 K/ L 1.78-5.38 LYMPHOCYTES ABSOLUTE COUNT (BEAKER) (test uixu=556) 1.45 K/ L 1.32-3.57 MONOCYTES ABSOLUTE COUNT (BEAKER) (test tfwp=889) 1.01 K/ L 0.30-0.82 EOSINOPHILS ABSOLUTE COUNT (BEAKER) (test fkho=095) 0.49 K/ L 0.04-0.54 BASOPHILS ABSOLUTE COUNT (BEAKER) (test lris=244) 0.05 K/ L 0.01-0.08 IMMATURE GRANULOCYTES-RELATIVE PERCENT (BEAKER) (test mctj=2800) 0 % 0-1 BASIC METABOLIC [id number] 06:48:00* Test Item Value Reference Range Comments SODIUM (BEAKER) (test wete=432) 138 meq/L 136-145 POTASSIUM (BEAKER) (test ifgq=229) 4.2 meq/L 3.5-5.1 CHLORIDE (BEAKER) (test lztk=540) 106 meq/L 98-107 CO2 (BEAKER) (test alkw=572) 26 meq/L 22-29 BLOOD UREA NITROGEN (BEAKER) (test ehto=391) 15 mg/dL 7-21 CREATININE (BEAKER) (test bumd=692) 0.73 mg/dL 0.57-1.25 GLUCOSE RANDOM (BEAKER) (test pcjf=773) 106 mg/dL 70-105 CALCIUM (BEAKER) (test sdua=308) 8.8 mg/dL 8.4-10.2 EGFR (BEAKER) (test qafz=0982) 102 mL/min/1.73 sq m ESTIMATED GFR IS NOT ACCURATE CREATININE CLEARANCE IN PREDICTING GLOMERULAR FILTRATION RATE. ESTIMATED GFR IS NOT APPLICABLE FOR DIALYSIS PATIENTS. BASIC METABOLIC [id number] 06:47:00* Test Item Value Reference Range Comments SODIUM (BEAKER) (test lszp=507) 139 meq/L 136-145 POTASSIUM (BEAKER) (test rxkt=808) 4.1 meq/L 3.5-5.1 CHLORIDE (BEAKER) (test vpjl=499) 106 meq/L 98-107 CO2 (BEAKER) (test ewfj=448) 24 meq/L 22-29 BLOOD UREA NITROGEN (BEAKER) (test vztw=305) 15 mg/dL 7-21 CREATININE (BEAKER) (test mdcl=808) 0.72 mg/dL 0.57-1.25 GLUCOSE RANDOM (BEAKER) (test fvwf=581) 104 mg/dL 70-105 CALCIUM (BEAKER) (test lhea=345) 8.8 mg/dL 8.4-10.2 EGFR (BEAKER) (test ysit=3301) 104 mL/min/1.73 sq m ESTIMATED GFR IS NOT ACCURATE CREATININE CLEARANCE IN PREDICTING GLOMERULAR FILTRATION RATE. ESTIMATED GFR IS NOT APPLICABLE FOR DIALYSIS PATIENTS. CBC W/PLT COUNT & AUTO [id number] 06:29:00* Test Item Value Reference Range Comments WHITE BLOOD CELL COUNT (BEAKER) (test fmxg=762) 5.4 K/ L 3.5-10.5 RED BLOOD CELL COUNT (BEAKER) (test ylni=207) 3.35 M/ L 4.63-6.08 HEMOGLOBIN (BEAKER) (test hfkg=684) 10.3 GM/DL 13.7-17.5 HEMATOCRIT (BEAKER) (test mqbw=327) 32.0 % 40.1-51.0 MEAN CORPUSCULAR VOLUME (BEAKER) (test reyj=915) 95.5 fL 79.0-92.2 MEAN CORPUSCULAR HEMOGLOBIN (BEAKER) (test fqeh=652) 30.7 pg 25.7-32.2 MEAN CORPUSCULAR HEMOGLOBIN CONC (BEAKER) (test xqoj=151) 32.2 GM/DL 32.3-36.5 RED CELL DISTRIBUTION WIDTH (BEAKER) (test lcwx=151) 13.3 % 11.6-14.4 PLATELET COUNT (BEAKER) (test sqlp=899) 256 K/CU MM 150-450 MEAN PLATELET VOLUME (BEAKER) (test bybl=869) 10.7 fL 9.4-12.4 NUCLEATED RED BLOOD CELLS (BEAKER) (test vgyw=350) 0 /100 WBC 0-0 NEUTROPHILS RELATIVE PERCENT (BEAKER) (test wyrn=475) 51 % LYMPHOCYTES RELATIVE PERCENT (BEAKER) (test qord=305) 22 % MONOCYTES RELATIVE PERCENT (BEAKER) (test ymdr=007) 18 % EOSINOPHILS RELATIVE PERCENT (BEAKER) (test njpm=150) 9 % BASOPHILS RELATIVE PERCENT (BEAKER) (test uaii=858) 1 % NEUTROPHILS ABSOLUTE COUNT (BEAKER) (test zzxh=979) 2.74 K/ L 1.78-5.38 LYMPHOCYTES ABSOLUTE COUNT (BEAKER) (test rouz=803) 1.18 K/ L 1.32-3.57 MONOCYTES ABSOLUTE COUNT (BEAKER) (test ikoa=759) 0.95 K/ L 0.30-0.82 EOSINOPHILS ABSOLUTE COUNT (BEAKER) (test ybjw=271) 0.47 K/ L 0.04-0.54 BASOPHILS ABSOLUTE COUNT (BEAKER) (test ylib=365) 0.06 K/ L 0.01-0.08 IMMATURE GRANULOCYTES-RELATIVE PERCENT (BEAKER) (test prgm=6600) 0 % 0-1 CREATINE KINASE (CK), TOTAL AND [id number] 15:52:00* Test Item Value Reference Range Comments CREATINE KINASE TOTAL (BEAKER) (test bwxb=361) 68 U/L 29-200 CREATINE KINASE-MB (BEAKER) (test yjug=262) 1.8 ng/mL 0.0-6.6 CREATINE KINASE-MB INDEX (BEAKER) (test rilv=741) 2.6 % CK-MB Reference Range:<6.7 Normal6.7-10.0 Borderline>10.0 Abnormal TROPONIN [id number] 15:52:00* Test Item Value Reference Range Comments TROPONIN I (BEAKER) (test kptl=251) 0.03 ng/mL 0.00-0.03 Troponin I (TnI) levels must be interpreted in the context of the presenting sym ptoms and the clinical findings. Elevated TnI levels indicate myocardial damage, but are not specific for ischemic heart disease. Elevated TnI levels are seen in patients with other cardiac conditions (including myocarditis and congestive h eart failure), and slight TnI elevations occur in patients with other conditions , including sepsis, renal failure, acidosis, acute neurological disease, and per sistent tachyarrhythmia.CT, CTA, [id number] 12:07:00Reason for exam:->BACK PAINWhat is the patient's sedation requirement?->No SedationFINAL REPORT CT angiogram of the chest Reason for study: Aortic disease, back pain Comparison: CTA chest, 04/24/2010 Technique: Pre and post contrast chest CT. Intravenous contrast was given. Post contrast imaging was performed in the arterial phase. 3-D post processing was performed at the workstation. Dose modulation, iterative reconstruction, and/or weight based adjustment of the mA/kV was utilized to reduce the radiation dose to as low as reasonably achievable. Discussion: The ascending thoracic aorta is minimally ectatic. By do uble oblique MPR, the aortic root measures 4.1 cm at the sinus of Valsalva. The mid ascending portion measures 4.1 cm. The mid transverse arch measures 3.5 cm. The proximal descending thoracic aorta measures 3.0 cm. The mid descending thora cic aorta measures 3 cm. The distal descending thoracic aorta measures 2.7 cm. T here is no intramural hematoma. Scattered atherosclerotic plaque is identified. The heart is enlarged. Coronary artery calcifications are seen. There is no carlos cardial effusion. Trace low-density pleural effusions are identified bilaterally , approximately equal in size. There is no thoracic lymphadenopathy. The thyroid gland is not seen. Limited examination of the upper abdomen has an unremarkable arterial phase appearance. The bones are intact. IMPRESSION 1. No acute CT abno rmality. There is mild ectasia of the aortic root/ascending aorta. 2. Cardiomeg nessa. This has developed since the 2009 study. Signed: Hector Magallon MDReport Juan Pablo ified Date/Time: 12/28/2017 12:07:36 Reading Location: [address] TINE KINASE (CK), TOTAL AND [id number] 09:44:00* Test Item Value Reference Range Comments CREATINE KINASE TOTAL (BEAKER) (test lwoo=852) 72 U/L 29-200 CREATINE KINASE-MB (BEAKER) (test hybr=274) 1.7 ng/mL 0.0-6.6 CREATINE KINASE-MB INDEX (BEAKER) (test qfqd=208) 2.4 % CK-MB Reference Range:<6.7 Normal6.7-10.0 Borderline>10.0 Abnormal TROPONIN [id number] 09:44:00* Test Item Value Reference Range Comments TROPONIN I (BEAKER) (test pjpc=503) < ng/mL 0.00-0.03 Troponin I (TnI) levels must be interpreted in the context of the presenting sym ptoms and the clinical findings. Elevated TnI levels indicate myocardial damage, but are not specific for ischemic heart disease. Elevated TnI levels are seen in patients with other cardiac conditions (including myocarditis and congestive h eart failure), and slight TnI elevations occur in patients with other conditions , including sepsis, renal failure, acidosis, acute neurological disease, and per sistent tachyarrhythmia.BASIC METABOLIC [id number] 09:36:00* Test Item Value Reference Range Comments SODIUM (BEAKER) (test sxpd=013) 139 meq/L 136-145 POTASSIUM (BEAKER) (test kxnc=541) 4.6 meq/L 3.5-5.1 CHLORIDE (BEAKER) (test hxxi=872) 106 meq/L 98-107 CO2 (BEAKER) (test jopk=870) 29 meq/L 22-29 BLOOD UREA NITROGEN (BEAKER) (test qunq=101) 14 mg/dL 7-21 CREATININE (BEAKER) (test uhgp=716) 0.78 mg/dL 0.57-1.25 GLUCOSE RANDOM (BEAKER) (test oigp=146) 104 mg/dL 70-105 CALCIUM (BEAKER) (test lnnr=312) 9.2 mg/dL 8.4-10.2 EGFR (BEAKER) (test fcam=3252) 95 mL/min/1.73 sq m ESTIMATED GFR IS NOT ACCURATE CREATININE CLEARANCE IN PREDICTING GLOMERULAR FILTRATION RATE. ESTIMATED GFR IS NOT APPLICABLE FOR DIALYSIS PATIENTS. RAD, CHEST, 2 [id number] 09:26:00Reason for exam:->BACK PAINUpperFINAL REPORT Chest 2 views 12/28/2017 9:25 AM CLINICAL HISTORY: BACK PAIN COMPARISON: 07/02/2017 FINDINGS: The lungs are clear. Cardiomedi astinal contours are within normal limits. The central pulmonary vasculature is not engorged. The visualized skeleton is intact. IMPRESSION: No acute radiogra phic abnormalities. Signed: Jovon Quiroz Verified Date/Time: 2017 09:26:06 Reading Location: [facility] Radiology Reading Room [facility] signed by: JOVON QUIROZ M.D. on 12/28/2017 09:26 AM CBC W/PLT COUNT & AUTO [id number] 09:21:00* Test Item Value Reference Range Comments WHITE BLOOD CELL COUNT (BEAKER) (test xipv=606) 4.9 K/ L 3.5-10.5 RED BLOOD CELL COUNT (BEAKER) (test yotz=141) 3.36 M/ L 4.63-6.08 HEMOGLOBIN (BEAKER) (test uqao=642) 10.5 GM/DL 13.7-17.5 HEMATOCRIT (BEAKER) (test bmzs=110) 32.5 % 40.1-51.0 MEAN CORPUSCULAR VOLUME (BEAKER) (test wxhp=926) 96.7 fL 79.0-92.2 MEAN CORPUSCULAR HEMOGLOBIN (BEAKER) (test qgrw=563) 31.3 pg 25.7-32.2 MEAN CORPUSCULAR HEMOGLOBIN CONC (BEAKER) (test qyqq=313) 32.3 GM/DL 32.3-36.5 RED CELL DISTRIBUTION WIDTH (BEAKER) (test jofm=286) 13.1 % 11.6-14.4 PLATELET COUNT (BEAKER) (test zdga=121) 248 K/CU MM 150-450 MEAN PLATELET VOLUME (BEAKER) (test gybh=296) 10.7 fL 9.4-12.4 NUCLEATED RED BLOOD CELLS (BEAKER) (test yqze=155) 0 /100 WBC 0-0 NEUTROPHILS RELATIVE PERCENT (BEAKER) (test vdsd=092) 53 % LYMPHOCYTES RELATIVE PERCENT (BEAKER) (test mefh=405) 21 % MONOCYTES RELATIVE PERCENT (BEAKER) (test cddv=165) 15 % EOSINOPHILS RELATIVE PERCENT (BEAKER) (test monp=849) 9 % BASOPHILS RELATIVE PERCENT (BEAKER) (test zeqe=932) 1 % NEUTROPHILS ABSOLUTE COUNT (BEAKER) (test jtzg=002) 2.57 K/ L 1.78-5.38 LYMPHOCYTES ABSOLUTE COUNT (BEAKER) (test lmmx=714) 1.04 K/ L 1.32-3.57 MONOCYTES ABSOLUTE COUNT (BEAKER) (test giid=543) 0.73 K/ L 0.30-0.82 EOSINOPHILS ABSOLUTE COUNT (BEAKER) (test pmgs=229) 0.46 K/ L 0.04-0.54 BASOPHILS ABSOLUTE COUNT (BEAKER) (test hzec=536) 0.07 K/ L 0.01-0.08 IMMATURE GRANULOCYTES-RELATIVE PERCENT (BEAKER) (test ighx=8143) 0 % 0-1 TISSUE [id number] 15:59:00Surgical Pathology Report Case: [id number] Authorizing Provider: Melecio Gamboa MD Ordering Provider: Melecio Gamboa MD Ordering Location: [address] Collected: 03/03/2017 1159 Service Pathologist: Redd Sanabria MD Received: 03/03/2017 1440 Specimen: Biopsy, Gastric GASTRIC, BIOPSY- CHRONIC INACTIVE GASTRITIS WITH FOCAL EROSION- NO INTESTINAL METAPLASIA, NO DYS PLASIA AND NO MALIGNANCY IDENTIFIED- NO HELICOBACTER PYLORI ORGANISMS IDENTIFIED ON WARTHIN-STARRY STAIN Signing Pathologist Direct Phone Line: [phone] painGastric biopsyThe specimen is received in a formalin-fill ed container labeled with the patient's information and labeled "gastric biopsy" and consists of five fragments of peterson-pink soft tissue ranging from 0.2 to 0.5 cm, submitted entirely in A1. CG/ewSections reveal fragments of benign antral mu cosa with fibromuscular hyperplasia within the lamina propria along with mild ch ronic inflammation and mild reactive changes within the glandular epithelium. No active gastritis is seen. Vascular congestion is seen along with focal erosion. No ulcer is identified. No Helicobacter pylori organisms are identified on Wart hin-Starry stain. Intestinal metaplasia, dysplasia and malignancy are not seen.T he following special studies were performed on this case and the interpretation is incorporated in the diagnostic report above:IMMUNOHISTOCHEMISTRY/SPECIAL STAI N SUMMARY:The results of immunohistochemical studies and/or special stains are a s follows:Warthin-Starry stain - No Helicobacter pylori organisms identified [id number] 06:35:00* Test Item Value Reference Range Comments MAGNESIUM (BEAKER) (test fsku=328) 2.1 mg/dL 1.6-2.6 BASIC METABOLIC [id number] 06:35:00* Test Item Value Reference Range Comments SODIUM (BEAKER) (test jkee=599) 140 meq/L 136-145 POTASSIUM (BEAKER) (test kucd=744) 3.9 meq/L 3.5-5.1 CHLORIDE (BEAKER) (test mklz=194) 107 meq/L 98-107 CO2 (BEAKER) (test ylwd=344) 27 meq/L 22-29 BLOOD UREA NITROGEN (BEAKER) (test lrsl=949) 11 mg/dL 7-21 CREATININE (BEAKER) (test lehi=194) 0.76 mg/dL 0.57-1.25 GLUCOSE RANDOM (BEAKER) (test bona=811) 96 mg/dL 70-105 CALCIUM (BEAKER) (test yrbr=655) 8.4 mg/dL 8.4-10.2 EGFR (BEAKER) (test pjjg=6721) 98 mL/min/1.73 sq m ESTIMATED GFR IS NOT ACCURATE CREATININE CLEARANCE IN PREDICTING GLOMERULAR FILTRATION RATE. ESTIMATED GFR IS NOT APPLICABLE FOR DIALYSIS PATIENTS. CBC W/PLT COUNT & AUTO [id number] 05:47:00* Test Item Value Reference Range Comments WHITE BLOOD CELL COUNT (BEAKER) (test nodv=917) 5.8 K/ L 4.0-10.0 RED BLOOD CELL COUNT (BEAKER) (test xyjy=938) 3.41 M/ L 4.20-5.80 HEMOGLOBIN (BEAKER) (test ficl=489) 11.0 GM/DL 13.0-16.8 HEMATOCRIT (BEAKER) (test spry=223) 33.3 % 40.0-50.0 MEAN CORPUSCULAR VOLUME (BEAKER) (test usuw=048) 97.4 fL 82.0-98.0 MEAN CORPUSCULAR HEMOGLOBIN (BEAKER) (test nmqi=239) 32.2 pg 27.0-33.0 MEAN CORPUSCULAR HEMOGLOBIN CONC (BEAKER) (test emak=455) 33.1 GM/DL 32.0-36.0 RED CELL DISTRIBUTION WIDTH (BEAKER) (test yuwh=288) 13.1 % 10.3-14.2 PLATELET COUNT (BEAKER) (test ziie=313) 211 K/CU MM 150-430 MEAN PLATELET VOLUME (BEAKER) (test njuv=871) 8.2 fL 6.5-10.5 NUCLEATED RED BLOOD CELLS (BEAKER) (test pomr=347) 0 /100 WBC 0-0 NEUTROPHILS RELATIVE PERCENT (BEAKER) (test cmmx=392) 56 % LYMPHOCYTES RELATIVE PERCENT (BEAKER) (test qtdz=823) 22 % MONOCYTES RELATIVE PERCENT (BEAKER) (test yypt=413) 15 % EOSINOPHILS RELATIVE PERCENT (BEAKER) (test skgz=159) 6 % BASOPHILS RELATIVE PERCENT (BEAKER) (test qiin=030) 1 % NEUTROPHILS ABSOLUTE COUNT (BEAKER) (test ffzj=636) 3.28 K/ L 1.80-8.00 LYMPHOCYTES ABSOLUTE COUNT (BEAKER) (test axfq=868) 1.29 K/ L 1.48-4.50 MONOCYTES ABSOLUTE COUNT (BEAKER) (test fkrp=632) 0.87 K/ L 0.00-1.30 EOSINOPHILS ABSOLUTE COUNT (BEAKER) (test tqci=022) 0.35 K/ L 0.00-0.50 BASOPHILS ABSOLUTE COUNT (BEAKER) (test lgpr=829) 0.04 K/ L 0.00-0.20 0.00CREATINE KINASE (CK), TOTAL AND [id number] 18:20:00* Test Item Value Reference Range Comments CREATINE KINASE TOTAL (BEAKER) (test zqky=044) 74 U/L 29-200 CREATINE KINASE-MB (BEAKER) (test lfyw=057) 1.6 ng/mL 0.0-6.6 CREATINE KINASE-MB INDEX (BEAKER) (test cgdu=927) 2.2 % Effective 09/26/2014: CK-MB Reference Range ChangeNew: 0.0-6.6 Previous: 0.0- 4.9CK-MB Reference Range:<6.7 Normal6.7-10.0 Borderline>10.0 Abnormal TROPONIN [id number] 18:20:00* Test Item Value Reference Range Comments TROPONIN I (BEAKER) (test rrms=694) < ng/mL 0.00-0.03 Effective 09/26/2014: Reference Range ChangeNew: 0.00-0.03 Previous 0.00-0.15T roponin I (TnI) levels must be interpreted in the context of the presenting symp toms and the clinical findings. Elevated TnI levels indicate myocardial damage, but are not specific for ischemic heart disease. Elevated TnI levels are seen in patients with other cardiac conditions (including myocarditis and congestive he art failure), and slight TnI elevations occur in patients with other conditions, including sepsis, renal failure, acidosis, acute neurological disease, and pers istent tachyarrhythmia.T4, [id number] 15:05:00* Test Item Value Reference Range Comments FREE T4 (BEAKER) (test lqst=268) 1.15 ng/dL 0.70-1.48 CREATINE KINASE (CK), TOTAL AND [id number] 12:41:00* Test Item Value Reference Range Comments CREATINE KINASE TOTAL (BEAKER) (test gkrq=134) 73 U/L 29-200 CREATINE KINASE-MB (BEAKER) (test fbwd=106) 1.5 ng/mL 0.0-6.6 CREATINE KINASE-MB INDEX (BEAKER) (test cruu=247) 2.1 % Effective 09/26/2014: CK-MB Reference Range ChangeNew: 0.0-6.6 Previous: 0.0- 4.9CK-MB Reference Range:<6.7 Normal6.7-10.0 Borderline>10.0 Abnormal TROPONIN [id number] 12:41:00* Test Item Value Reference Range Comments TROPONIN I (BEAKER) (test juup=756) 0.02 ng/mL 0.00-0.03 Effective 09/26/2014: Reference Range ChangeNew: 0.00-0.03 Previous 0.00-0.15T roponin I (TnI) levels must be interpreted in the context of the presenting symp toms and the clinical findings. Elevated TnI levels indicate myocardial damage, but are not specific for ischemic heart disease. Elevated TnI levels are seen in patients with other cardiac conditions (including myocarditis and congestive he art failure), and slight TnI elevations occur in patients with other conditions, including sepsis, renal failure, acidosis, acute neurological disease, and pers istent tachyarrhythmia.TSH/FREE T4 IF [id number] 09:27:00* Test Item Value Reference Range Comments THYROID STIMULATING HORMONE (BEAKER) (test frhe=429) 0.02 uIU/mL 0.35-4.94 B-TYPE NATRIURETIC FACTOR (BNP)2017-03-02 08:20:00* Test Item Value Reference Range Comments B-TYPE NATRIURETIC PEPTIDE (BEAKER) (test owht=976) 162 pg/mL 0-100 CREATINE KINASE (CK), TOTAL AND [id number] 08:20:00* Test Item Value Reference Range Comments CREATINE KINASE TOTAL (BEAKER) (test djzl=471) 86 U/L 29-200 CREATINE KINASE-MB (BEAKER) (test fcfg=762) 1.4 ng/mL 0.0-6.6 CREATINE KINASE-MB INDEX (BEAKER) (test yzul=088) 1.6 % Effective 09/26/2014: CK-MB Reference Range ChangeNew: 0.0-6.6 Previous: 0.0- 4.9CK-MB Reference Range:<6.7 Normal6.7-10.0 Borderline>10.0 Abnormal TROPONIN [id number] 08:20:00* Test Item Value Reference Range Comments TROPONIN I (BEAKER) (test oxti=201) 0.01 ng/mL 0.00-0.03 Effective 09/26/2014: Reference Range ChangeNew: 0.00-0.03 Previous 0.00-0.15T roponin I (TnI) levels must be interpreted in the context of the presenting symp toms and the clinical findings. Elevated TnI levels indicate myocardial damage, but are not specific for ischemic heart disease. Elevated TnI levels are seen in patients with other cardiac conditions (including myocarditis and congestive he art failure), and slight TnI elevations occur in patients with other conditions, including sepsis, renal failure, acidosis, acute neurological disease, and pers istent tachyarrhythmia.BASIC METABOLIC [id number] 08:13:00* Test Item Value Reference Range Comments SODIUM (BEAKER) (test wqpx=044) 140 meq/L 136-145 POTASSIUM (BEAKER) (test lfoz=349) 4.6 meq/L 3.5-5.1 Specimen slightly hemolyzed CHLORIDE (BEAKER) (test udqu=882) 106 meq/L 98-107 CO2 (BEAKER) (test hcdd=651) 26 meq/L 22-29 BLOOD UREA NITROGEN (BEAKER) (test pdtn=289) 10 mg/dL 7-21 CREATININE (BEAKER) (test mhbq=710) 0.84 mg/dL 0.57-1.25 Specimen slightly hemolyzed GLUCOSE RANDOM (BEAKER) (test oomm=925) 102 mg/dL 70-105 CALCIUM (BEAKER) (test xcsi=552) 8.8 mg/dL 8.4-10.2 EGFR (BEAKER) (test ttdq=6655) 87 mL/min/1.73 sq m ESTIMATED GFR IS NOT ACCURATE CREATININE CLEARANCE IN PREDICTING GLOMERULAR FILTRATION RATE. ESTIMATED GFR IS NOT APPLICABLE FOR DIALYSIS PATIENTS. [id number] 08:02:00* Test Item Value Reference Range Comments PROTIME (BEAKER) (test pzjz=240) 13.4 seconds 11.7-14.7 INR (BEAKER) (test vvmg=751) 1.0 <=5.9 PARTIAL THROMBOPLASTIN TIME (BEAKER) (test xtdx=116) 29.4 seconds 22.5-36.0 RECOMMENDED COUMADIN/WARFARIN INR THERAPY RANGESSTANDARD DOSE: 2.0 - 3.0 Inclu shaheed: PROPHYLAXIS for venous thrombosis, systemic embolization; TREATMENT for mikhail ous thrombosis and/or pulmonary embolus.HIGH RISK: Target INR is 2.5-3.5 for pat ients with mechanical heart valves.CBC W/PLT COUNT & AUTO [id number] 07:57:00* Test Item Value Reference Range Comments WHITE BLOOD CELL COUNT (BEAKER) (test upso=448) 4.5 K/ L 4.0-10.0 RED BLOOD CELL COUNT (BEAKER) (test dbot=907) 3.60 M/ L 4.20-5.80 HEMOGLOBIN (BEAKER) (test qnzc=413) 11.6 GM/DL 13.0-16.8 HEMATOCRIT (BEAKER) (test ocrm=625) 35.2 % 40.0-50.0 MEAN CORPUSCULAR VOLUME (BEAKER) (test ekpu=690) 97.7 fL 82.0-98.0 MEAN CORPUSCULAR HEMOGLOBIN (BEAKER) (test yqox=247) 32.3 pg 27.0-33.0 MEAN CORPUSCULAR HEMOGLOBIN CONC (BEAKER) (test zchf=616) 33.0 GM/DL 32.0-36.0 RED CELL DISTRIBUTION WIDTH (BEAKER) (test iwww=051) 11.9 % 10.3-14.2 PLATELET COUNT (BEAKER) (test qbzn=113) 229 K/CU MM 150-430 MEAN PLATELET VOLUME (BEAKER) (test cjam=661) 8.1 fL 6.5-10.5 NUCLEATED RED BLOOD CELLS (BEAKER) (test pxte=724) 0 /100 WBC 0-0 NEUTROPHILS RELATIVE PERCENT (BEAKER) (test vsrf=528) 56 % LYMPHOCYTES RELATIVE PERCENT (BEAKER) (test fnrs=416) 22 % MONOCYTES RELATIVE PERCENT (BEAKER) (test omnm=529) 14 % EOSINOPHILS RELATIVE PERCENT (BEAKER) (test eczm=883) 8 % BASOPHILS RELATIVE PERCENT (BEAKER) (test fuvg=897) 1 % NEUTROPHILS ABSOLUTE COUNT (BEAKER) (test zxix=356) 2.53 K/ L 1.80-8.00 LYMPHOCYTES ABSOLUTE COUNT (BEAKER) (test usut=662) 0.99 K/ L 1.48-4.50 MONOCYTES ABSOLUTE COUNT (BEAKER) (test arrh=505) 0.63 K/ L 0.00-1.30 EOSINOPHILS ABSOLUTE COUNT (BEAKER) (test aboj=860) 0.36 K/ L 0.00-0.50 BASOPHILS ABSOLUTE COUNT (BEAKER) (test mnjb=782) 0.03 K/ L 0.00-0.20 0.00
[2019-07-11] MEDS ORDERED: ASPIRIN 325 MG TAB PO ONE (13:15)
--- NOTE | 2019-07-11 13:35 | Diagnostic Imaging Report ---
Frontal and lateral views of the chest. HISTORY: Congestion, cough COMPARISON: None available. DISCUSSION: Motion artifact partially limits sensitivity and specificity of the lateral. Lungs: Minimal bibasilar atelectasis. No evidence of a consolidative pneumonia or pulmonary alveolar edema. Pleura: No pleural effusion or pneumothorax. Heart and mediastinum: The cardiomediastinal silhouette appear(s) unremarkable. Mild ectasia versus tortuosity of the thoracic aorta. Bones and soft tissues: Appear unremarkable. IMPRESSION: 1. Minimal bibasilar atelectasis. 2. No consolidative pneumonia. Signed by: Dr. Anthony Jones D.O., M.M.M. on 07/11/2019 1:31 PM
[2019-07-11 13:41] LABS: BASOPHILS # (AUTO) 0.1 (0.0-0.1); EOSINOPHILS # (AUTO) 0.2 (0.0-0.4); EOSINOPHILS % 3.9 % (0.0-6.0); HEMATOCRIT 30.8 % (38.2-49.6); HEMOGLOBIN 10.2 g/dL (14.0-18.0); LYMPHOCYTES # (AUTO) 0.9 (1.0-3.2); LYMPHOCYTES % 18.1 % (18.0-39.1); MEAN CORPUSCULAR HEMOGLOBIN 31.4 pg (28-32); MEAN CORPUSCULAR HGB CONC 33.1 g/dL (31-35); MEAN CORPUSCULAR VOLUME 94.8 fL (81-99); MONOCYTES # (AUTO) 0.7 (0.2-0.8); NEUTROPHILS # (AUTO) 3.3 (2.1-6.9); NEUTROPHILS % 63.6 % (38.7-80.0); PLATELET COUNT 271 x10e3/uL (140-360); RED BLOOD COUNT 3.25 x10e6/uL (4.3-5.7); RED CELL DISTRIBUTION WIDTH 12.9 % (11.7-14.4)
[2019-07-11 13:49] LABS: INR 0.96; PROTHROMBIN TIME 13.3 seconds (11.9-14.5)
[2019-07-11 13:50] LABS: PARTIAL THROMBOPLASTIN TIME 36.5 seconds (23.8-35.5)
[2019-07-11 14:01] LABS: ALANINE AMINOTRANSFERASE 9 IU/L (0-55); ALBUMIN 3.7 g/dL (3.5-5.0); ALBUMIN/GLOBULIN RATIO 1.3 (0.8-2.0); ALKALINE PHOSPHATASE 44 IU/L (40-150); ANION GAP 14.3 mmol/L (8-16); BLOOD UREA NITROGEN 12 mg/dL (7-26); BUN/CREATININE RATIO 13 (6-25); CALCIUM 9.3 mg/dL (8.4-10.2); CARBON DIOXIDE 25 mmol/L (22-29); CHLORIDE 103 mmol/L (98-107); CREATINE KINASE 92 IU/L (30-200); CREATININE, SERUM 0.93 mg/dL (0.72-1.25); EST GLOMERULAR FILTRATION RATE > 60 ML/MIN (60-); GLUCOSE 108 mg/dL (74-118); POTASSIUM 4.3 mmol/L (3.5-5.1); SODIUM 138 mmol/L (136-145)
--- OUTSIDE RECORDS SUMMARY | 2019-07-11 15:03 | XMS REPORT | Clinical Summary ---
Author Author [facility] Organization [facility] Address Unknown Phone Unavailable Care Team Providers Care Sander Hand Name Role Phone Lesley Blanc PCP Allergies [...] Taken Vital Sign Reading 12/17/2018 4:08 PM RN [facility] Blood Pressure 138/66 12/17/2018 4:08 PM RN [facility] Pulse 66 12/17/2018 4:08 PM RN [facility] Temperature 36.3 C (97.4 F) 12/17/2018 4:08 PM RN [facility] Respiratory Rate 18 12/17/2018 4:08 PM RN [facility] Oxygen Saturation 98% - Inhaled Oxygen - Concentration 12/17/2018 7:00 AM RN [facility] Weight 101.2 kg (223 lb) 12/16/2018 5:00 PM RN [facility]GR[facility] Height 188 cm (6' 2") 12/17/2018 7:00 AM RN [facility]GR[facility] Body Mass Index 28.63 Plan of Treatment Not on file Implants Device Identifier Shelf Expiration Date Model / Serial / Lot Implanted Type Area Manufactur er 05/08/2020 [id number] / / [id number] Mynxgrip Cardiovasc N/A: Groin CARDINAL Implanted: Qty: 1 on 06/23/2018 by [facility] Dell Macario MD KELLY Procedures Comments Procedure Name Priority Date/Time Associated Diagnosis RHYTHM STRIP - SCAN 12/30/2018 6:30 AM RN [facility] REPORT OF PROCEDURE - 12/30/2018 ENDOSCOPY SCAN 6:30 AM RN [facility] TREADMILL Routine 12/17/2018 TOLERANCE(NON-NUCLEAR 2:52 PM RN [facility] TREADMILL) NM CARDIAC PET PERFUSION ALONSO 12/17/2018 REST AND/OR STRESS 2:49 PM RN [facility]GR[facility] TROPONIN I Routine 12/16/2018 6:10 PM RN [facility] XR CHEST 1 VIEW STAT 12/16/2018 PORTABLE/BEDSIDE 11:38 AM RN [facility]GR[facility] CBC W/PLT COUNT & AUTO STAT 12/16/2018 DIFFERENTIAL 11:14 AM RN [facility]GR[facility] CBC W/PLT COUNT & AUTO STAT 12/16/2018 DIFFERENTIAL 11:14 AM RN [facility]GR[facility] TROPONIN I STAT 12/16/2018 11:14 AM RN [facility]GR[facility] B-TYPE NATRIURETIC FACTOR STAT 12/16/2018 (BNP) 11:14 AM RN [facility]GR[facility] MAGNESIUM STAT 12/16/2018 11:14 AM RN [facility] BASIC METABOLIC PANEL (7) STAT 12/16/2018 11:14 AM RN [facility] ECG 12-LEAD Routine 12/16/2018 10:55 AM RN [facility]GR[facility] Procedure Note - Interface, External Ris In - 12/16/2018 7:15 PM RN [facility] Ventricula r Rate 68 BPM Atrial Rate 68 BPM P-R Interval 270 ms QRS Duration 146 ms Q-T Interval 434 ms QTC Calculatio n(Bazett) 461 ms P [place] 59 degrees R [place] -6 degrees T [place] 41 degrees Poor data quality, interpreta tion may be adversely affected Wide QRS rhythm Right bundle branch block Abnormal ECG When compared with ECG of 8 00:57, Wide QRS rhythm has replaced Sinus rhythm ECG 12-LEAD STAT 12/16/2018 10:55 AM RN [facility]GR[facility] VASCULAR DIAGRAM -SCAN 09/06/2018 11:13 AM CDT after 07/10/2018 Results * RHYTHM STRIP - SCAN (12/30/2018 6:30 AM RN [facility]) Narrative Performed At * EKG-SCANNED (12/30/2018 6:30 AM RN [facility]TEGR[facility]) Narrative Performed At * Treadmill tolerance(Non-Nuclear Treadmill) (12/17/2018 2:52 PM RN [facility]GR[facility]) Specimen Narrative Performed At Protocol Name Regadenoson [...] External Ris In - 12/20/2018 7:00 PM RN [facility]TEGR[facility] Protocol Name Regadenoson Time In Exercise Phase [...] PM Performing Organization Address City/State/Zipcode Phone Number [employer] MUSE * NM myocardial perfusion PET (rest and stress) (12/17/2018 2:49 PM RN INTEGR[facility]) Specimen Narrative Performed At FINAL REPORT [employer] PROCEDURE: Rest/Stress MYOCARDIAL PERFUSION PET with regadenoson\\XA9\\ CPT CODE: [id number] INDICATION: Evaluate acute chest pain/discomfort, coronary artery [...] stress.5. Normal extracardiac tracer distribution.6. No previous [facility] study for comparison. Signed: Freya Brown MD Report Verified Date/Time:12/17/2018 15:55:23 Reading Location: [address] Reading Room Procedure Note Interface, External Ris In - 12/17/2018 3:57 PM RN [facility] FINAL REPORT PROCEDURE: Rest/Stress MYOCARDIAL PERFUSION PET with regadenoson\\XA9\\ CPT CODE: [id number] INDICATION: Evaluate acute chest pain/discomfort, coronary artery [...] Normal extracardiac tracer distribution. 6. No previous [facility] study for comparison. Signed: Freya Brown MD Report Verified Date/Time: 12/17/2018 15:55:23 Reading Location: [address] Reading Room Performing Organization Address City/State/Zipcode Phone Number GE RIS * Troponin I (12/16/2018 6:10 PM RN [facility]GR[facility]) Only the most recent of 2 results within the time period is included. Troponin I <0.01 0.00 - 0.03 ng/mL [facility] Specimen Blood Narrative Performed At Troponin I (TnI) levels must be interpreted in the context of the presenting [facility] symptoms and the clinical findings. Elevated TnI levels indicate myocardial [facility] damage, but are not specific for ischemic heart disease. Elevated TnI levels are seen in patients with other cardiac conditions (including myocarditis and congestive heart failure), and slight TnI elevations occur in patients with other conditions, including sepsis, renal failure, acidosis, acute neurological disease, and persistent tachyarrhythmia. Performing Organization Address City/[facility] Phone Number [facility] [address] [place] [address] MEDICAL CENTER * XR chest 1 view portable/bedside (12/16/2018 11:38 AM RN INTEGR[facility]) Specimen Narrative Performed At FINAL REPORT [employer] Clinical History: chest pain Comparison Study: May 31, 2018 Findings:The heart and lungs are within normal limits.The pleural spaces are clear.No significant bony or soft tissue abnormalities are seen. Impression: No active cardiopulmonary disease. Signed: Tomas Painting MD Report Verified Date/Time:12/16/2018 12:27:00 Reading Location: [facility] Radiology Reading Room Procedure Note Interface, External Ris In - 12/16/2018 12:29 PM RN [facility] FINAL REPORT Clinical History: chest pain Comparison Study: May 31, 2018 Findings: The heart and lungs are within normal limits. The pleural spaces are clear. No significant bony or soft tissue abnormalities are seen. Impression: No active cardiopulmonary disease. Signed: Tomas Painting MD Report Verified Date/Time: 12/16/2018 12:27:00 Reading Location: [facility] Radiology Reading Room Performing Organization Address City/[facility] Cent[facility]ode Phone Number [employer] * CBC with platelet count + automated diff (12/16/2018 11:14 AM RN [facility]GR[facility]) WBC 4.9 3.5 - 10.5 K/L [facility] RBC 3.34 (L) 4.63 - 6.08 M/L [facility] Hemoglobin 10.5 (L) 13.7 - 17.5 GM/DL [facility] Hematocrit 31.9 (L) 40.1 - 51.0 % [facility] MCV 95.5 (H) 79.0 - 92.2 fL [facility] MCH 31.4 25.7 - 32.2 pg [facility] MCHC 32.9 32.3 - 36.5 GM/DL [facility] RDW 12.5 11.6 - 14.4 % [facility] Platelets 241 150 - 450 K/CU MM [facility] MPV 10.5 9.4 - 12.4 fL [facility] nRBC 0 0 - 0 /100 WBC [facility] % Neutros 60 % [facility] % Lymphs 19 % [facility] % Monos 17 % [facility] % Eos 3 % [facility] % Baso 1 % [facility] # Neutros 2.94 1.78 - 5.38 K/L [facility] # Lymphs 0.92 (L) 1.32 - 3.57 K/L [facility] # Monos 0.82 0.30 - 0.82 K/L [facility] # Eos 0.14 0.04 - 0.54 K/L [facility] # Baso 0.04 0.01 - 0.08 K/L [facility] Immature 0 0 - 1 % [facility] Granulocytes-Relative [facility] Specimen Blood Performing Organization Address City/[facility]/Zipcode Phone Number [address] [address] [phone] [address] * B-type Natriuretic Factor (BNP) (12/16/2018 11:14 AM RN [facility]TEGR[facility]) BNP 300 (H) 0 - 100 pg/mL [facility] Specimen Blood Performing Organization Address City/[facility]/Zipcode Phone Number [address] [address] [phone] [place] [address] * Magnesium (12/16/2018 11:14 AM RN IN[facility]GR[facility]) Magnesium 1.9 1.6 - 2.6 mg/dL [facility] Specimen Blood Performing Organization Address [facility] Centercook Phone Number [place] [phone] * Basic Metabolic Panel (12/16/2018 11:14 AM RN [facility]GR[facility]) Sodium 137 136 - 145 meq/L [facility] Potassium 4.2 3.5 - 5.1 meq/L [facility] Chloride 103 98 - 107 meq/L [facility] CO2 25 22 - 29 meq/L [facility] BUN 13 7 - 21 mg/dL [facility] Creatinine 0.86 0.57 - 1.25 mg/dL [facility] Glucose 109 (H) 70 - 105 mg/dL [facility] Calcium 9.2 8.4 - 10.2 mg/dL [facility] EGFR 85Comment: ESTIMATED GFR IS mL/min/1.73 sq m [facility] NOT ACCURATE CREATININE [facility] CLEARANCE IN PREDICTING GLOMERULAR FILTRATION RATE. ESTIMATED GFR IS NOT APPLICABLE FOR DIALYSIS PATIENTS. Specimen Blood Performing Organization Address City/[facility]/Zipcode Phone Number [facility] [address] [place] [address] MEDICAL CENTER * ECG 12 lead (12/16/2018 10:55 AM RN [facility]GR[facility]) Specimen Narrative Performed At Ventricular Rate 68 BPM [facility]USE Atrial Rate 68 BPM P-R Interval 270 ms QRS Duration 146 ms Q-T Interval 434 ms QTC Calculation(Bazett) 461 ms P [place] 59 degrees R [place] -6 degrees T [place] 41 degrees Sinus rhythm with first degree AV block Right bundle branch block Abnormal ECG When compared with ECG of 31-MAY-2018 00:57, ventricular bigeminy is no longer present. Confirmed by Donald BRADSHAW MICHAEL ([id number]) on 12/17/2018 7:26:07 AM Procedure Note Interface, External Ris In - 12/17/2018 9:04 AM RN [facility] Ventricular Rate 68 BPM Atrial Rate 68 BPM P-R Interval 270 ms QRS Duration 146 ms Q-T Interval 434 ms QTC Calculation(Bazett) 461 ms P [place] 59 degrees R [place] -6 degrees T [place] 41 degrees Sinus rhythm with first degree [...] Advance Directives For more information, please contact: [address] [phone] Date Inactivated Comments Code Status Date Activated [...]
--- OUTSIDE RECORDS SUMMARY | 2019-07-11 15:03 | XMS REPORT | Clinical Summary ---
Author Author [facility] Organization [facility] Address Unknown Phone Unavailable Care Team Providers Care Care Program Resident Name Role Phone Lesley Blanc MD PCP [...] mouth. Active Ca/D3/mag Take 600 mg 0 ox/zinc/engraver copperplate/tamika/bor by mouth (CALCIUM 600-D3 PLUS daily. ORAL) Active fluticasone (FLONASE) 50 2 sprays by 0 mcg/actuation nasal spray Each Nare route daily. Active ymplyugh-enhayerkbpt-xxub Take by 0 cb25 116-100 mg capsule [...] 102 kg (225 lb) 09/28/2018 9:12 AM [employer] Weight 188 cm (6' 2") 09/28/2018 9:12 AM [employer] TE[employer]ER Height 28.89 09/28/2018 9:12 AM [employer] TE[employer]ER Body Mass Index Plan of Treatment Health Maintenance Due Date Last Done Comments SHINGLES VACCINES (#1) 1983 65+ PNEUMOCOCCAL VACCINE 1998 (1 of 2 - PCV13) INFLUENZA VACCINE 06/09/2019 Procedures Comments Procedure Name Priority Date/Time Associated Diagnosis XR SHOULDER 2+ VW RIGHT Routine 09/28/2018 Chronic right shoulder 9:29 AM [employer] TE[employer]ER pain after 07/10/2018 Results * XR Shoulder 2+ Vw Right (09/28/2018 9:29 AM AFTER [employer] TE[employer]ER) Specimen Narrative Performed At [facility] Three-view x-ray of the right shoulder: There is some generalized osteopenia.There is a loss of the subacromial space with superior migration of the humeral head on the glenoid.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 Performing Organization Address City/State/Zipcode Phone Number [facility] [address] [place] [address] after 07/10/2018 Insurance Type Payer Benefit Subscriber ID Effective Phone Address Plan / Dates Group Indemnity AETNA AETNA xxxxxxxxxx [id number] [facility] resent RE INDEMNITY Medicare MEDICARE MEDICARE xxxxxxxxxx 1998-P [place], PART A AND resent [place] Advance Directives For more information, please contact: [phone] Patient 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
== END 2019-07-11 16:19 | disposition home or self-care (01) ==
LOC: ER 12:38 → ERHOLD 15:00
PROVIDERS: ADMIT Internal Medicine; ATTEND Internal Medicine
DX: R07.89 Other chest pain (principal); I48.2 Chronic atrial fibrillation; B34.9 Viral infection, unspecified; I11.0 Hypertensive heart disease with heart failure; I50.9 Heart failure, unspecified; E03.9 Hypothyroidism, unspecified; D64.9 Anemia, unspecified; K21.9 Gastro-esophageal reflux disease without esophagitis; E78.5 Hyperlipidemia, unspecified
CPT/HCPCS: 36415; 71046; 80053; 82550; 82553; 83880; 84484; 85025; 85610; 85730; 93005; 99284; G0378